=== PATIENT | female | born 1955 | race Caucasian/White ===

== ENCOUNTER 2020-03-19 11:57 | Emergency (ER) | payer OTHER ==
[~2020-03-19] VITALS: Ht 157.5 cm; Wt 90.7 kg
[2020-03-19 12:37] LABS: ABSOLUTE NEUTROPHILS 10.4 thou/uL (1.4-8.2); BASOPHILS 0.6 % (0.0-2.0); EOSINOPHILS 0.1 % (0.0-3.0); HEMATOCRIT 44.6 % (37.0-47.0); HEMOGLOBIN 14.4 gm/dL (12.0-15.0); LYMPHOCYTES 14.7 % (24.0-44.0); MCH 31.3 pg (26.0-34.0); MCHC 32.3 g/dL (28.0-37.0); MCV 96.9 fL (80.0-100.0); MONOCYTES 6.6 % (1.0-8.0); PLATELET COUNT 339 thou/uL (150-400); RBC 4.61 mil/uL (4.20-5.00); RDW 15.3 % (10.5-14.5); WBC 13.4 thou/uL (4.0-11.0)
[2020-03-19 12:46] LABS: APTT 22.6 Seconds (24.5-32.8); PROTIME 10.2 Seconds (9.3-11.4)
[2020-03-19 12:52] LABS: ANION GAP 12 mmol/L (7-16); BUN 20 mg/dL (7-18); CALCIUM 9.7 mg/dL (8.5-10.1); CHLORIDE 103 mmol/L (98-107); CO2 25 mmol/L (21-32); CREATININE 1.3 mg/dL (0.6-1.0); GLUCOSE 141 mg/dL (74-106); POTASSIUM 3.9 mmol/L (3.5-5.1); SODIUM 140 mmol/L (136-145)
[2020-03-19 12:57] LABS: ALBUMIN 3.6 g/dL (3.4-5.0); LIPASE 132 U/L (73-393); SGOT 18 U/L (15-37); SGPT 18 U/L (14-59); TOTAL BILIRUBIN 0.3 mg/dL (0.2-1.0); TOTAL PROTEIN 7.6 g/dL (6.4-8.2); TROPONIN-I <0.06 ng/mL (<0.06)
[2020-03-19 13:57] LABS: URINE BILIRUBIN NEGATIVE (Negative); URINE BLOOD TRACE (Negative); URINE CLARITY CLEAR; URINE COLOR YELLOW; URINE GLUCOSE-RANDOM* NEGATIVE (Negative); URINE KETONES NEGATIVE (Negative); URINE LEUKOCYTES-REFLEX 1+ (Negative); URINE NITRITE-REFLEX NEGATIVE (Negative); URINE PROTEIN (DIPSTICK) 2+ (Negative); URINE UROBILINOGEN 0.2 E.U./dl (0.2-1.0)
[2020-03-19 14:13] LABS: HYALINE CASTS 0-3 Few /LPF (None Seen); SQUAMOUS 4-10 Moderate /LPF (0-3)
[2020-03-19 14:14] LABS: CRYSTALS None Seen /LPF (None Seen)
[2020-03-19 14:16] LABS: BACTERIA-REFLEX 1-9 Few /HPF (None Seen); MUCUS 0-3 Light strn/LPF (None Seen); URINE RBC 0-2 Rare /HPF (0-2); URINE WBC-REFLEX 0-5 Rare /HPF (0-5)
[2020-03-19 15:42] VITALS: BP 99/65
--- NOTE | 2020-03-20 07:15 | EKG ---
[address] [address] ELECTROCARDIOGRAM REPORT Name: CURTISMAL Room #: LATOSHA Qureshi#: [id number] Admission: 03/19/20 Attend Phys: Discharge: 03/19/20 Date of : 57 Report #: [id number] [facility] ED Test Date: 2020-03-19 Test Time: 12:04:26 Pat Name: MAL ACEVEDO Department: Room: Gender: F [employer]: [place] : 1955 Requested By: Alvarado Ackerman Order Number: [id number] MD: Khari Lucas Measurements Intervals [place] Rate: 69 P: 24 NH: 162 QRS: 11 QRSD: 89 T: 34 QT: 430 QTc: 461 Interpretive Statements Sinus rhythm No previous ECG available for comparison Electronically Signed On 03-20-2020 7:15:14 BIOMETRICIAN by Khari Lucas [email or web address] <ELECTRONICALLY SIGNED> By: Khari Lucas MD, [facility] 03/20/20 0715 1204 1204 Khari Lucas MD, FACC /EPI
== END 2020-03-19 16:00 | disposition home or self-care (01) ==
LOC: ER 11:57
PROVIDERS: Emergency Medicine
DX: N83.201 Unspecified ovarian cyst, right side (principal); R55 Syncope and collapse; I95.9 Hypotension, unspecified; R11.2 Nausea with vomiting, unspecified; I10 Essential (primary) hypertension; E66.9 Obesity, unspecified; Z88.0 Allergy status to penicillin; Z68.36 Body mass index [BMI] 36.0-36.9, adult